=== PATIENT | female | born 1995 | race Two or more races ===

== ENCOUNTER 2018-12-04 02:02 | Inpatient (IN) | payer MEDICAID ==
[~2018-12-04] VITALS: Ht 157.5 cm; Wt 57.2 kg
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
[2018-12-04] MEDS ORDERED: ONDANSETRON HCL/PF 4 MG/2 ML VIAL ONE (02:43)
[2018-12-04 02:55] LABS: BASOPHILS % (AUTO) 0.4 % (0.0-2.0); EOSINOPHILS % (AUTO) 0.2 % (0.0-6.0); HEMATOCRIT 39 % (33-45); HEMOGLOBIN 13.1 g/dL (11.5-14.8); LYMPHOCYTES # (AUTO) 3.7 /CMM (0.8-4.8); LYMPHOCYTES % (AUTO) 48.4 % (20.0-44.0); MEAN CORPUSCULAR HGB CONC 33 g/dl (31.0-36.0); MEAN CORPUSCULAR VOLUME 94 fL (82-100); MONOCYTES # (AUTO) 0.6 /CMM (0.1-1.30); MONOCYTES % (AUTO) 8.4 % (2.0-12.0); NEUTROPHILS # (AUTO) 3.2 /CMM (1.8-8.9); NEUTROPHILS % (AUTO) 42.6 % (43.0-81.0); PLATELET COUNT (AUTO) 236 /CMM (150-450); RED BLOOD CELL COUNT(AUTO) 4.21 MIL/uL (4.0-5.2); WHITE BLOOD COUNT (AUTO) 7.6 K/uL (4.3-11.0)
[2018-12-04] MEDS ORDERED: ONDANSETRON 4 MG TAB.RAPDIS PO ONE (03:00)
[2018-12-04] MEDS ORDERED: IV NS 0.9% 1,000 ML BAG IV ONE (03:00)
[2018-12-04] MEDS ORDERED: ONDANSETRON HCL/PF - ER 4 MG/2 ML VIAL IV ONE (03:00)
--- NOTE | 2018-12-04 03:00 | NUR ---
PT PULLED OUT HER IV. IVF STOPPED. NEW IV STARTED IN RAC. FLUID RESUMED.
[2018-12-04 03:01] LABS: CALCIUM, SERUM 8.4 mg/dL (8.5-10.1); CREATININE 0.7 mg/dL (0.6-1.3); POTASSIUM 3.7 mmol/L (3.5-5.1)
[2018-12-04 03:11] LABS: ALBUMIN 3.9 g/dL (3.4-5.0); BILIRUBIN,DIRECT 0.1 mg/dL (0.0-0.2); BILIRUBIN,TOTAL 0.2 mg/dL (0.2-1.0); TOTAL PROTEIN, SERUM 7.4 g/dL (6.4-8.2)
[2018-12-04 03:13] LABS: SALICYLATE 1.1 mg/dL (2.8-20.0)
[2018-12-04] MEDS ORDERED: METOCLOPRAMIDE HCL 10 MG/2 ML VIAL ONE (03:15)
--- NOTE | 2018-12-04 03:19 | NUR ---
PT PULLED OUT HER IV AGAIN. NOTIFIED.
--- NOTE | 2018-12-04 03:21 | NUR ---
PT STARTED CRYING AND WANTED ME TO CALL HER MOM. PT STATED THAT HER MOTHER'S NUMBER IS . PT ALSO STATED THAT HER MOTHER LIVES IN [place]. WILL CALL PT'S MOTHER WHEN SHE IS MORE ALERT. PT STATED THAT SHE WANTED TO TALK TO HER MOTHER.
[2018-12-04] MEDS ORDERED: METOCLOPRAMIDE HCL 10 MG/2 ML VIAL IV ONE (03:30)
--- NOTE | 2018-12-04 03:30 | NUR ---
PT LEFT FOR CT VIA GURNEY.
[2018-12-04 03:54] LABS: APPEARANCE,URINE Clear (CLEAR); BILIRUBIN,URINE Negative (NEGATIVE); BLOOD, URINE Negative Ery/uL (NEGATIVE); COLOR,URINE Yellow (YELLOW); KETONES,URINE Negative (NEGATIVE); LEUKOCYTE ESTERASE ,URINE Negative (NEGATIVE); NITRITE, URINE Negative (NEGATIVE); PH,URINE 5.5 (5.0-8.0); PROTEIN,URINE Negative (NEGATIVE); UGLUCOSE Negative (NEGATIVE); UROBILINOGEN,URINE 0.2 EU/dL (0.2)
--- NOTE | 2018-12-04 03:54 | NUR ---
REPORT GIVEN TO RADHA BARAKAT/CHG.
--- NOTE | 2018-12-04 04:06 | NUR ---
PT LEFT FOR CT VIA GURNEY.
--- NOTE | 2018-12-04 05:52 | NUR ---
CALLED [employer] WAS PAGED.
--- NOTE | 2018-12-04 05:55 | NUR ---
PATIENT WILL BE ADMITTED TO [facility] BED 101
[2018-12-04] MEDS ORDERED: PIPERACILLIN /TAZOBACTAM 3.375 G in IV D5W 50 ML IV ONE (06:00)
[2018-12-04] MEDS ORDERED: PIPERACILLIN /TAZOBACTAM 3.375 G VIAL IV ONE (06:02)
--- NOTE | 2018-12-04 06:17 | NUR ---
MOTHERS NUMBER: [id number]
--- NOTE | 2018-12-04 06:35 | NUR ---
PT WILL BE PRESENTED AFTER 7AM.
--- NOTE | 2018-12-04 07:24 | NUR ---
report given to hernesto goddard.
[2018-12-04] MEDS ORDERED: SERT100T12 PO (07:57)
[2018-12-04] MEDS ORDERED: DEXM25CP2 PO (07:57)
--- NOTE | 2018-12-04 08:45 | NUR ---
DIRECTOR OF INSTITUTIONAL GIVINGGRADES 9 THRU 12 VISITING TEACHER NOTE RECEIVED REPORT FROM DEANDRE ,RECEIVED PATIENT TO THE UNIT VIA [place],ABLE TO WALK TO BED.AXOX4.ADMITTED WITH PRIMARY DIAGNOSIS OF PNA.ON RA.NO SOB NO DISTRESS NOTED.IV ON RH#20.INTACT AND PATENT.BED IS LOW AND IN LOCKED POSITION.CALL LIGHT IN REACH.SRX3.WILL CONTINUE TO MONITOR.
--- NOTE | 2018-12-04 08:46 | NUR ---
PATIENT TRANSFERRED VIA ACLS PROTOCOL. TIM. KJ.
[2018-12-04 08:50] VITALS: BP 109/76
[2018-12-04] MEDS ORDERED: IV NS 0.9% 1,000 ML IV PRN (08:55)
[2018-12-04] MEDS ORDERED: ACETAMINOPHEN 325 MG TABLET PO PRN (09:00)
[2018-12-04] MEDS ORDERED: ZOLPIDEM TARTRATE 5 MG TABLET PO PRN (09:00)
[2018-12-04] MEDS ORDERED: LORAZEPAM INJ 2 MG/ML VIAL IV PRN (09:00)
[2018-12-04] MEDS ORDERED: MAG HYDROX/AL HYDROX/SIMETH 30 ML UDC PO PRN (09:00)
[2018-12-04] MEDS ORDERED: MAGNESIUM HYDROXIDE 30 ML UDC PO PRN (09:00)
[2018-12-04] MEDS ORDERED: ONDANSETRON HCL/PF 4 MG/2 ML VIAL IVP PRN (09:00)
[2018-12-04] MEDS ORDERED: HYDROCODONE/APAP 5/325MG 1 EACH TABLET PO PRN (09:00)
[2018-12-04] MEDS ORDERED: Z GUARD REMEDY 2 OZ OINT TP PRN (09:00)
[2018-12-04 09:49] LABS: MAGNESIUM 1.9 mg/dL (1.8-2.4); PHOSPHORUS 4.5 mg/dL (2.5-4.9)
[2018-12-04] MEDS ORDERED: CEFTRIAXONE 1 G in IV D5W 50 ML IV SCH (10:00)
[2018-12-04] MEDS ORDERED: Folic acid 1 MG in IV D5W 50 ML IV SCH (10:00)
[2018-12-04] MEDS ORDERED: Thiamine 100 MG in IV D5W 50 ML IV SCH (10:00)
--- NOTE | 2018-12-04 11:00 | NUR ---
CITY DRIVER NOTE PATIENT WANT TO BE ON DNR/DNI STATUS.
[2018-12-04 12:00] VITALS: BP_SYST 109; BP_SYST 96; BP_DIAS 58; BP_DIAS 76
[2018-12-04] MEDS ORDERED: METRONIDAZOLE 500MG/ NS 100ML 500 MG in PREMIX 1 EA IV SCH (12:00)
--- NOTE | 2018-12-04 12:10 | NUR ---
ICT TEACHER NOTE BP NOTED 85/53,RECHECKED 96/58.NO DIZZINESS NOTED.WILL CONTINUE TO MONITOR.
--- NOTE | 2018-12-04 15:05 | NUR ---
PIGMENT PROCESSORVINYL TOP INSTALLER NOTE PATIENT LEFT AMA.CHARGE NURSE ABLE TO EXPLAIN RISK AND BENEFIT TO THE PATIENT ,STILL WANT TO GO AMA.SIGNED AMA.PULLED OUT IV.MILD BLEEDING NOTED.DONT ALLOWED TO PLACE DRESSING.REFUSED BODY CHECK.LEFT HOSPITAL BY HERSELF [facility]MARTINA VAZ AT THE SITE.
--- NOTE | 2018-12-04 15:33 | NUR ---
RN NOTE INCIDENT REPORT DONE
[2018-12-05] MEDS ORDERED: PANTOPRAZOLE 40 MG TABLET.DR PO SCH (07:30)
== END 2018-12-04 15:05 | disposition left against medical advice (07) | DRG 177 ==
LOC: ER 02:05 → TELE1 06:33
PROVIDERS: ADMIT Hospitalist; ATTEND Hospitalist
DX: J69.0 Pneumonitis due to inhalation of food and vomit (principal); G92 Toxic encephalopathy; F10.129 Alcohol abuse with intoxication, unspecified; Y90.8 Blood alcohol level of 240 mg/100 ml or more; F14.90 Cocaine use, unspecified, uncomplicated; J15.9 Unspecified bacterial pneumonia; R11.2 Nausea with vomiting, unspecified
CPT/HCPCS: 36415; 70450-TC; 71045-TC; 72125-TC; 80048-TC; 80076-TC; 80305; 81000-TC; 83735-TC; 84100-TC; 84702-TC; 85025-TC; 87040-TC; 87081-TC; A4216; G0378; G0480; J0696; J2405; J2543; J2765; J3411; J3490; J7030; J7060